=== PATIENT | female | born 1995 | race African-American/Black ===

== ENCOUNTER 2017-05-18 16:49 | Emergency (ER) | payer MEDICAID ==
[2017-05-18] MEDS ORDERED: Cephalexin 500 MG Cap PO ONE (17:48)
--- NOTE | 2017-05-18 17:51 | EDM.PDOC ---
ED HPI GENERAL MEDICAL PROBLEM - General Chief Complaint: Lower Extremity Injury/Pain Stated Complaint: INFECTED TOE/TOOTH ACHE Time Seen by Provider: 05/18/17 17:23 Source of Information: Reports: Patient, RN Notes Reviewed History Limitations: Reports: No Limitations - History of Present Illness INITIAL COMMENTS - FREE TEXT/NARRATIVE: The patient states that she has had a lower left toothache for the past 2 months. She states that she saw a dentist in [place] last month, and was told that the tooth needed to be removed, however, she has not had that done. The toothache recurred about 4 days ago. No fever. No oral drainage. The patient also reports that her left great toe appears to have an infection on it for the past 3 weeks. She has not had medical evaluation of this. She states that it hurts and believes if it is bumped. No prior similar symptoms. The patient states that she moved here about one week ago, and has not established care with either a dentist or a PCP. 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: - Past Surgical History Female Surgical History: Reports: Section (x 2), D&C (x 1) Social & Family History - Family History Family Medical History: Unobtainable - Tobacco Use Smoking Status *Q: Never Smoker - Caffeine Use Caffeine Use: Reports: Soda Other Caffeine Use: occasionally - Alcohol Use Alcohol Use History: No - Recreational Drug Use Recreational Drug Use: No - Living Situation & Occupation Living situation: Reports: Single, Other (with friends) Occupation: Unemployed Review of Systems - Review of Systems Review Of Systems: See Below Constitutional: Reports: No Symptoms Eyes: Reports: No Symptoms Ears: Reports: No Symptoms Nose: Reports: No Symptoms Mouth/Throat: Reports: Other (Dental pain, as per the HPI) Respiratory: Reports: No Symptoms Cardiovascular: Reports: No Symptoms GI/Abdominal: Reports: No Symptoms Genitourinary: Reports: No Symptoms Musculoskeletal: Reports: Other (Left great toe pain, as per the HPI) Skin: Reports: No Symptoms Neurological: Reports: No Symptoms Psychiatric: Reports: No Symptoms ED EXAM, GENERAL - Physical Exam Exam: See Below Exam Limited By: No Limitations General Appearance: Alert, WD/WN, No Apparent Distress Eye Exam: Bilateral Eye: Normal Inspection Ears: Normal External Exam, Normal Canal, Hearing Grossly Normal, Normal TMs Nose: Normal Inspection, Normal Mucosa, No Blood Throat/Mouth: Normal Inspection, Normal Lips, Normal Gums, Normal Oropharynx, Normal Voice, No Airway Compromise, Other (Tooth #17 absent. Tooth #18 appears to be normal, with no filling, zana, or obvious fracture. No associated gingival swelling or pointing.) Head: Atraumatic, Normocephalic Neck: Normal Inspection, Supple, Non-Tender, Full Range of Motion. No: Lymphadenopathy (L), Lymphadenopathy (R) Extremities: Other (There appears to be paronychia on the medial aspect of the left great toe, however, it appears to have spontaneously ruptured. There is some purulent fluid emanating. It is very tender to palpation, however, no toe swelling or erythema.) Course - Vital Signs Last Recorded V/S: Last Vital Signs Temp 36.6 C 05/18/17 16:58 Pulse 88 05/18/17 16:58 Resp 16 05/18/17 16:58 BP 119/69 05/18/17 16:58 Pulse Ox 98 05/18/17 16:58 - Orders/Labs/Meds Meds: Medications Discontinued Medications Generic Name Dose Route Start Last Admin Trade Name Freq PRN Reason Stop Dose Admin Cephalexin 500 mg 05/18/17 17:48 05/18/17 17:55 Keflex PO 05/18/17 17:49 500 mg ONETIME ONE Administration - Re-Assessments/Exams Free Text/Narrative Re-Assessment/Exam: 05/18/17 17:45 The patient has a toothache of tooth #18, however, the tooth is normal in appearance, with no gingival swelling or pointing. Nevertheless, she was told by a dentist in [place] that the tooth needs to be removed, and I cannot argue with that. I don't see an indication for an antibiotic at this time, however, we will provide her with a list of dentists so that she may follow-up. The patient appears to have a paronychia of her left great toe, which spontaneously ruptured. We will dress the toe, and I will start her on oral Keflex. I would like her to soak the toe in warm salty water several times a day , if possible, and I will refer her to a Treasury Agent. Departure - Departure Time of Disposition: 17:48 Disposition: Home, Self-Care 01 Condition: Good Clinical Impression: Dentalgia, Paronychia of great toe, left - Discharge Information Prescriptions: Cephalexin [Keflex] 250 mg PO Q6HR #20 cap Instructions: Dental Caries, [id number] Referrals: PCP,Not In Area [Primary Care Provider] - Reyes Skinner II, DUSTY [Physician] - Jose R Mcdaniel [Physician] - Forms: ED Department Discharge Additional Instructions: You were seen in the emergency room for a left lower toothache and a left big toe infection. Your lower left tooth appeared to be normal, without a sign of an infection, however, if you were told by a dentist in [place] that the tooth needs to be removed, then we recommend that you follow-up with a dentist at the next available appointment. A list of local dentists has been provided to you. Your left big toe appears to have a paronychia - a possible pocket by the cuticle, that appears to have popped on its own. You have been started on the antibiotic Keflex. Take one tablet every 6 hours, as prescribed. We recommend that you "milk" the toe under warm salt water several times a day. Take [id number] ibuprofen or Aleve, with food, as needed for discomfort. Follow-up with the Treasury Agent Dr. Reyes Skinner at the next available appointment. Follow-up with the PCP Dr. Mcdaniel as needed. If any other problems, please do not hesitate to return to the ER.
== END 2017-05-18 18:15 | disposition home or self-care (01) ==
LOC: JD.ED 16:49
DX: L03.032 Cellulitis of left toe (principal); K08.89 Other specified disorders of teeth and supporting structures
CPT/HCPCS: 99283; A9270